=== PATIENT | female | born 1945 | race Caucasian/White ===

== ENCOUNTER 2018-02-20 20:04 | Emergency (ER) | payer OTHER ==
[~2018-02-20] VITALS: Ht 167.6 cm; Wt 59.0 kg
[2018-02-20] MEDS ORDERED: SODIUM CHLORIDE 0.9% 1,000 ML IVB ONE (21:50)
[2018-02-20 23:12] LABS: Basophils # (auto) 0 uL; Basophils % (auto) 0.4 % (0.0-2.0); Eosinophils # (auto) 0.1 uL; Eosinophils % (auto) 0.8 % (0.0-7.0); Hemoglobin 14.3 g/dL (12.2-16.2); Lymphocytes # (auto) 0.9 uL; Lymphocytes % (auto) 8.2 % (10.0-50.0); Mean Corpuscular Hemoglobin 31.1 pg (28.0-32.0); Mean Corpuscular Hgb Conc. 33.2 g/dL (32.0-36.0); Mean Corpuscular Volume 93.7 fL (80.0-100.0); Monocytes # (auto) 0.4 uL; Monocytes % (auto) 3.2 % (0.0-12.0); Neutrophils # (auto) 9.8 uL; Neutrophils % (auto) 87.4 % (37.0-80.0); Platelet Count (auto) 218 10^3/uL (140-450); Red Blood Cells 4.59 10^6/uL (4.0-5.20); Red Cell Distribution Width 13.6 % (11.8-14.3); White Blood Cell 11.2 10^3/uL (4.4-10.8)
[2018-02-20 23:34] LABS: Albumin 4.4 g/dL (3.4-5.0); BUN/Creatinine Ratio 13.4; Bilirubin, Total 0.4 mg/dL (0.2-1.0); Calcium 8.5 mg/dL (8.5-10.1); Potassium 3.5 mmol/L (3.5-5.1); Total Protein 8.4 g/dL (6.4-8.2)
[2018-02-21] MEDS ORDERED: EPINEPHrine HCL INJECTION 4 MG in SODIUM CHL 0.9% 250 ML IV ONE (05:00)
[2018-02-21] MEDS ORDERED: SODIUM CHLORIDE 0.9% 1,000 ML IV ONE (07:56)
[2018-02-21 12:00] VITALS: BP 161/99
[2018-02-21 12:07] LABS: Urine Bacteria FEW /hpf (None Seen); Urine Blood 1+ /uL (Negative); Urine Specific Gravity 1.011 (1.001-1.035); Urine WBC 11 /hpf (0 - 5)
[2018-02-21 12:39] LABS: Alcohol, Urine < 3.0 mg/dL (0-5); Amphetamine Screen, Urine POSITIVE (NEGATIVE); Barbiturate Scree,Urine NEGATIVE (NEGATIVE); Benzodiazephine Screen, Urine NEGATIVE (NEGATIVE); Cannabinoid Screen, Urine NEGATIVE (NEGATIVE); Cocaine Screen, Urine NEGATIVE (NEGATIVE); Opiate Scree,Urine NEGATIVE (NEGATIVE); Phencyclidine Screen, Urine NEGATIVE (NEGATIVE)
[2018-02-21] MEDS ORDERED: LEVOFLOXACIN 500 MG TAB PO ONE (12:45)
== END 2018-02-21 13:44 | disposition home or self-care (01) ==
LOC: EDBD 20:04 → ER 20:04
DX: R55 Syncope and collapse (principal); I11.0 Hypertensive heart disease with heart failure; I50.9 Heart failure, unspecified; I25.10 Atherosclerotic heart disease of native coronary artery without angina pectoris; N39.0 Urinary tract infection, site not specified; N28.9 Disorder of kidney and ureter, unspecified; F15.10 Other stimulant abuse, uncomplicated; Z95.810 Presence of automatic (implantable) cardiac defibrillator; Z88.0 Allergy status to penicillin
CPT/HCPCS: 36415; 71046; 80053; 80307; 81001; 83735; 84484; 85025; 93005; 96360; 96361; 99285; J7030; J0171

== ENCOUNTER 2018-04-09 07:13 | Inpatient (IN) | payer OTHER ==
[~2018-04-09] VITALS: Ht 162.6 cm; Wt 64.4 kg
[2018-04-09 09:15] LABS: Basophils # (auto) 0.1 uL; Basophils % (auto) 1.1 % (0.0-2.0); Eosinophils # (auto) 0.1 uL; Eosinophils % (auto) 1.1 % (0.0-7.0); Hematocrit 36.9 % (36.0-46.0); Hemoglobin 12.2 g/dL (12.2-16.2); Lymphocytes # (auto) 0.9 uL; Lymphocytes % (auto) 13.2 % (10.0-50.0); Mean Corpuscular Hemoglobin 31.5 pg (28.0-32.0); Mean Corpuscular Volume 95.5 fL (80.0-100.0); Monocytes # (auto) 0.8 uL; Monocytes % (auto) 12.6 % (0.0-12.0); Neutrophils # (auto) 4.7 uL; Nucleated Red Blood Cells % 0.1 %; Platelet Count (auto) 212 10^3/uL (140-450); Red Blood Cells 3.87 10^6/uL (4.0-5.20); Red Cell Distribution Width 16.5 % (11.8-14.3); White Blood Cell 6.6 10^3/uL (4.4-10.8)
[2018-04-09 09:20] LABS: INR 1.31 (0.9-1.15); Partial Thromboplastin Time 28.1 sec (23.78-33.04); Prothrombin Time 13.8 sec (9.27-12.13)
[2018-04-09 09:23] LABS: Albumin 3.2 g/dL (3.4-5.0); Calcium 8.6 mg/dL (8.5-10.1); Magnesium 1.9 mg/dL (1.6-2.6); Potassium 5.1 mmol/L (3.5-5.1)
[2018-04-09 09:26] LABS: BUN/Creatinine Ratio 16.1
[2018-04-09 09:32] LABS: Bilirubin, Total 1.4 mg/dL (0.2-1.0); Total Protein 6.6 g/dL (6.4-8.2)
[2018-04-09] MEDS ORDERED: FUROSEMIDE 40 MG/4 ML VIAL IV ONE ×2 (10:00→10:30)
[2018-04-09] MEDS ORDERED: LORazepam 0.5 MG TAB PO PRN (10:15)
[2018-04-09] MEDS ORDERED: ALBUTEROL SULF 2.5 MG/0.5ML(0.5%) NEB SOLN NEB PRN (10:15)
[2018-04-09] MEDS ORDERED: NITROGLYCERIN 0.4 MG SL TAB SL PRN (10:15)
[2018-04-09] MEDS ORDERED: MORPHINE SULFATE 8mg/ml INJ SDV IV PRN ×3 (10:15)
[2018-04-09] MEDS ORDERED: PROMETHAZINE HCL 25 MG/ML 1ML IV PRN (10:15)
[2018-04-09] MEDS ORDERED: TEMAZEPAM 15 MG CAP PO PRN (10:15)
[2018-04-09] MEDS ORDERED: ASPirin 81 mg TAB PO ONE (10:30)
[2018-04-09] MEDS ORDERED: ENALAPRIL MALEATE 2.5 MG TAB PO ONE (10:30)
[2018-04-09] MEDS ORDERED: NITROGLYCERIN 0.2MG/HR TOPICAL PATCH TD ONE (10:30)
[2018-04-09] MEDS ORDERED: ENOXAPARIN SOD 40 MG/0.4 ML SYRINGE SC ONE (10:30)
[2018-04-09] MEDS ORDERED: PANTOPRAZOLE 40 MG TAB PO ONE (10:30)
[2018-04-09 11:18] LABS: CRP High Sensitivity 1.64 mg/dL (< 0.3)
[2018-04-09] MEDS: ALBUTEROL SULF 2.5 MG/0.5ML(0.5%) NEB SOLN NEB SCH ×2 (12:50→18:12)
[2018-04-09 13:40] VITALS: BP 173/93
[2018-04-09] MEDS ORDERED: ASPI81TA27 PO (17:32)
[2018-04-09] MEDS ORDERED: METO-159 PO (17:32)
[2018-04-09] MEDS ORDERED: ATOR80TA PO (17:32)
[2018-04-09] MEDS ORDERED: LISI40TA PO (17:32)
[2018-04-09] MEDS ORDERED: HYDR25TA35 PO (17:32)
[2018-04-09] MEDS ORDERED: CLOP75TA41 PO (17:32)
[2018-04-09] MEDS: CARVEDILOL 3.125 MG TAB PO SCH (22:00)
[2018-04-10] MEDS: ALBUTEROL SULF 2.5 MG/0.5ML(0.5%) NEB SOLN NEB SCH ×4 (00:25→18:00)
[2018-04-10 06:57] LABS: Basophils # (auto) 0 uL; Basophils % (auto) 0.7 % (0.0-2.0); Eosinophils # (auto) 0.1 uL; Eosinophils % (auto) 2.6 % (0.0-7.0); Hemoglobin 11.3 g/dL (12.2-16.2); Lymphocytes # (auto) 0.5 uL; Lymphocytes % (auto) 10.6 % (10.0-50.0); Mean Corpuscular Hgb Conc. 34.1 g/dL (32.0-36.0); Mean Corpuscular Volume 93.8 fL (80.0-100.0); Monocytes # (auto) 0.5 uL; Monocytes % (auto) 9.5 % (0.0-12.0); Neutrophils # (auto) 3.8 uL; Neutrophils % (auto) 76.6 % (37.0-80.0); Platelet Count (auto) 157 10^3/uL (140-450); Red Blood Cells 3.52 10^6/uL (4.0-5.20); Red Cell Distribution Width 16.3 % (11.8-14.3); White Blood Cell 4.9 10^3/uL (4.4-10.8)
[2018-04-10 07:12] LABS: Albumin 2.9 g/dL (3.4-5.0); BUN/Creatinine Ratio 18.2; Bilirubin, Total 1.2 mg/dL (0.2-1.0); Calcium 8.4 mg/dL (8.5-10.1); Potassium 3.6 mmol/L (3.5-5.1)
[2018-04-10 09:00] VITALS: BP 145/72
[2018-04-10] MEDS: CARVEDILOL 3.125 MG TAB PO SCH (09:57)
[2018-04-10] MEDS ORDERED: ENALAPRIL MALEATE 2.5 MG TAB PO SCH (10:00)
[2018-04-10] MEDS ORDERED: ASPirin 81 mg TAB PO SCH (10:00)
[2018-04-10] MEDS ORDERED: NITROGLYCERIN 0.2MG/HR TOPICAL PATCH TD SCH (10:00)
[2018-04-10] MEDS ORDERED: FUROSEMIDE 40 MG/4 ML VIAL IV SCH ×2 (10:00→18:00)
[2018-04-10] MEDS ORDERED: PANTOPRAZOLE 40 MG TAB PO SCH (10:00)
[2018-04-10] MEDS ORDERED: POTASSIUM CHL 20 Meq TABLET PO SCH (10:00)
[2018-04-10] MEDS ORDERED: ENOXAPARIN SOD 40 MG/0.4 ML SYRINGE SC SCH (10:00)
[2018-04-10 11:54] VITALS: BP 146/70
[2018-04-10 16:08] VITALS: BP 151/53
[2018-04-10 16:15] VITALS: BP 151/53
[2018-04-10] MEDS ORDERED: CARVEDILOL 3.125 MG TAB PO SCH (22:00)
[2018-04-11] MEDS ORDERED: ENALAPRIL MALEATE 10 MG TAB PO SCH (10:00)
[2018-04-12 10:44] LABS: Hepatitis B Surface Antibody Negative
[2018-04-12 11:13] LABS: Hepatitis A Total Antibody Negative
[2018-04-12 13:12] LABS: Hepatitis B Core Total AB Negative; Hepatitis B Surface Antigen Negative (Negative); Hepatitis C Antibody Negative (Negative)
== END 2018-04-10 18:35 | disposition home or self-care (01) | DRG 291 ==
LOC: EDBD 07:13 → ER 07:13 → TELE 07:14 → DOU IN ICU 04-10 08:45
PROVIDERS: ADMIT Internal Medicine; ATTEND Family Medicine
DX: I11.0 Hypertensive heart disease with heart failure (principal); J96.01 Acute respiratory failure with hypoxia; E78.5 Hyperlipidemia, unspecified; I50.43 Acute on chronic combined systolic (congestive) and diastolic (congestive) heart failure; F41.9 Anxiety disorder, unspecified; G47.00 Insomnia, unspecified; I20.9 Angina pectoris, unspecified; I42.9 Cardiomyopathy, unspecified; I73.9 Peripheral vascular disease, unspecified; R79.89 Other specified abnormal findings of blood chemistry; J44.9 Chronic obstructive pulmonary disease, unspecified; K21.9 Gastro-esophageal reflux disease without esophagitis; Z95.810 Presence of automatic (implantable) cardiac defibrillator; Z88.0 Allergy status to penicillin; Z79.899 Other long term (current) drug therapy
CPT/HCPCS: 36415; 71045; 76705; 80053; 80061; 82150; 82550; 83690; 83735; 83880; 84443; 84484; 85025; 85610; 85652; 85730; 86141; 86704; 86706; 86708; 86803; 87081; 87340; 93005; 93306; 94640

== ENCOUNTER 2020-04-13 13:04 | Emergency (ER) | payer OTHER ==
[~2020-04-13] VITALS: Ht 160 cm; Wt 59.0 kg
[~2020-04-13 13:04] MED LIST: ASPI-404 PO; ATOR80TA PO; CLOP75TA41 PO; HYDR-4296 PO; LISI40TA PO; METO-159 PO
[2020-04-13 13:52] LABS: Basophils # (auto) 0 10 ^3/uL (0-0.2); Basophils % (auto) 0.7 % (0.0-2.0); Eosinophils # (auto) 0.2 10 ^3/uL (0-0.8); Eosinophils % (auto) 3.7 % (0.0-7.0); Hematocrit 40.5 % (36.0-46.0); Hemoglobin 13.6 g/dL (12.2-16.2); Lymphocytes # (auto) 0.8 10 ^3/uL (0.4-5.4); Lymphocytes % (auto) 14.8 % (10.0-50.0); Mean Corpuscular Hemoglobin 31.4 pg (28.0-32.0); Mean Corpuscular Hgb Conc. 33.6 g/dL (32.0-36.0); Mean Corpuscular Volume 93.6 fL (80.0-100.0); Monocytes # (auto) 0.5 10 ^3/uL (0-1.3); Neutrophils # (auto) 3.9 10 ^3/uL (1.6-8.6); Neutrophils % (auto) 71.8 % (37.0-80.0); Platelet Count (auto) 166 10^3/uL (140-450); Red Blood Cells 4.33 10^6/uL (4.0-5.20); Red Cell Distribution Width 13.8 % (11.8-14.3); White Blood Cell 5.4 10^3/uL (4.4-10.8)
[2020-04-13 14:21] LABS: Albumin 3.7 g/dL (3.4-5.0); Calcium 8.4 mg/dL (8.5-10.1); Potassium 3.6 mmol/L (3.5-5.1)
[2020-04-13 14:27] LABS: BUN/Creatinine Ratio 23.9; Bilirubin, Total 0.6 mg/dL (0.2-1.0); Total Protein 7.3 g/dL (6.4-8.2)
[2020-04-13 15:59] VITALS: BP 99/56
== END 2020-04-13 16:01 | disposition home or self-care (01) ==
LOC: EDBD 13:04 → ER 13:04
DX: J70.5 Respiratory conditions due to smoke inhalation (principal); R06.02 Shortness of breath; I11.0 Hypertensive heart disease with heart failure; I50.9 Heart failure, unspecified; Z95.0 Presence of cardiac pacemaker; Z87.891 Personal history of nicotine dependence
CPT/HCPCS: 36415; 36600; 71046; 80053; 82805; 83880; 84484; 85025; 93005; 99285; J7030

== ENCOUNTER 2021-03-21 06:37 | Inpatient (IN) | payer OTHER ==
[~2021-03-21] VITALS: Ht 160 cm; Wt 63.0 kg
[~2021-03-21 06:37] MED LIST changes: -ASPI-404 PO; +ASPI-543 PO; -CLOP75TA41 PO; +CLOP75TA70 PO; -LISI40TA PO; +LISI40TA11 PO
[2021-03-21] MEDS ORDERED: SODIUM CHLORIDE 0.9% 1,000 ML IV ONE (07:15)
[2021-03-21] MEDS ORDERED: IPRATROPIUM BROM 0.5 MG/2.5ML INH SOL NEB ONE (07:15)
[2021-03-21] MEDS ORDERED: ALBUTEROL SULF 2.5 MG/0.5ML(0.5%) NEB SOLN NEB ONE (07:15)
[2021-03-21 07:19] LABS: Basophils # (auto) 0 10 ^3/uL (0-0.2); Basophils % (auto) 0.4 % (0.0-2.0); Eosinophils # (auto) 0 10 ^3/uL (0-0.8); Eosinophils % (auto) 0.1 % (0.0-7.0); Hematocrit 27.3 % (36.0-46.0); Lymphocytes % (auto) 8.9 % (10.0-50.0); Mean Corpuscular Hemoglobin 31.4 pg (28.0-32.0); Mean Corpuscular Hgb Conc. 33.1 g/dL (32.0-36.0); Mean Corpuscular Volume 95.1 fL (80.0-100.0); Monocytes # (auto) 1.9 10 ^3/uL (0-1.3); Monocytes % (auto) 16.4 % (0.0-12.0); Neutrophils # (auto) 8.7 10 ^3/uL (1.6-8.6); Neutrophils % (auto) 74.2 % (37.0-80.0); Nucleated Red Blood Cells % 0.1 %; Red Blood Cells 2.88 10^6/uL (4.0-5.20); Red Cell Distribution Width 16.1 % (11.8-14.3); White Blood Cell 11.7 10^3/uL (4.4-10.8)
[2021-03-21 07:40] LABS: Albumin 3.3 g/dL (3.4-5.0); Calcium 8.4 mg/dL (8.5-10.1); Potassium 4.5 mmol/L (3.5-5.1)
[2021-03-21 07:46] LABS: Bilirubin, Total 1.9 mg/dL (0.2-1.0); Total Protein 6.8 g/dL (6.4-8.2)
[2021-03-21] MEDS ORDERED: HYDR-4298 PO (09:52)
[2021-03-21] MEDS ORDERED: ATOR-47 PO (09:52)
[2021-03-21] MEDS ORDERED: FURO40TA4 PO (09:52)
[2021-03-21] MEDS ORDERED: METO200T42 PO (09:52)
[2021-03-21 10:26] LABS: Urine Amorphous Crystal FEW /hpf (None Seen); Urine Bacteria FEW /hpf (None Seen); Urine Blood 2+ /uL (Negative); Urine Hyaline Cast FEW /lpf (0 - 2); Urine Specific Gravity 1.018 (1.001-1.035); Urine WBC 22 /hpf (0 - 5)
[2021-03-21 10:37] LABS: Amphetamine Screen, Urine POSITIVE (NEGATIVE); Barbiturate Scree,Urine NEGATIVE (NEGATIVE); Benzodiazephine Screen, Urine NEGATIVE (NEGATIVE); Cannabinoid Screen, Urine POSITIVE (NEGATIVE); Cocaine Screen, Urine NEGATIVE (NEGATIVE); Opiate Scree,Urine NEGATIVE (NEGATIVE); Phencyclidine Screen, Urine NEGATIVE (NEGATIVE)
[2021-03-21] MEDS ORDERED: ONDANSETRON HCL 4 MG/2 ML VIAL IV PRN (13:45)
[2021-03-21] MEDS ORDERED: NITROGLYCERIN 0.4 MG SL TAB SL PRN (13:45)
[2021-03-21] MEDS ORDERED: hydrALAZINE HCL 20 MG/ML VL IV PRN (13:45)
[2021-03-21] MEDS ORDERED: MORPHINE SULFATE INJECTION 2 MG/ML SYRG IV PRN ×2 (13:45)
[2021-03-21] MEDS: SODIUM CHLORIDE 0.9% 1,000 ML IV SCH (13:52)
[2021-03-21 13:57] VITALS: BP 113/68
[2021-03-21 17:46] VITALS: BP 109/74
[2021-03-21] MEDS: BUDESONIDE (INHALATION) 0.5 MG/2 ML NEB NEB SCH (20:10)
[2021-03-21] MEDS: IPRATROPIUM BROM 0.5 MG/2.5ML INH SOL NEB SCH (20:10)
[2021-03-21] MEDS: ALBUTEROL SULF 2.5 MG/0.5ML(0.5%) NEB SOLN NEB PRN (20:10)
[2021-03-21 22:00] VITALS: BP 107/59
[2021-03-21] MEDS: PANTOPRAZOLE 40 MG TAB PO SCH (22:01)
[2021-03-21] MEDS: LORazepam 2MG/ML-1ML VIAL IV PRN (22:02)
[2021-03-22] MEDS: IPRATROPIUM BROM 0.5 MG/2.5ML INH SOL NEB SCH ×4 (00:39→18:16)
[2021-03-22] MEDS: SODIUM CHLORIDE 0.9% 1,000 ML IV SCH (04:15)
[2021-03-22 05:00] VITALS: BP 100/52
[2021-03-22] MEDS: BUDESONIDE (INHALATION) 0.5 MG/2 ML NEB NEB SCH ×2 (06:12→18:16)
[2021-03-22 06:51] LABS: Basophils # (auto) 0.1 10 ^3/uL (0-0.2); Basophils % (auto) 0.9 % (0.0-2.0); Eosinophils # (auto) 0.1 10 ^3/uL (0-0.8); Eosinophils % (auto) 0.9 % (0.0-7.0); Hematocrit 26.9 % (36.0-46.0); Lymphocytes # (auto) 0.4 10 ^3/uL (0.4-5.4); Lymphocytes % (auto) 4.7 % (10.0-50.0); Mean Corpuscular Hemoglobin 31.4 pg (28.0-32.0); Mean Corpuscular Hgb Conc. 33.3 g/dL (32.0-36.0); Mean Corpuscular Volume 94.3 fL (80.0-100.0); Monocytes # (auto) 1.1 10 ^3/uL (0-1.3); Neutrophils # (auto) 6.7 10 ^3/uL (1.6-8.6); Neutrophils % (auto) 80.5 % (37.0-80.0); Nucleated Red Blood Cells % 0.1 %; Red Blood Cells 2.85 10^6/uL (4.0-5.20); Red Cell Distribution Width 16.4 % (11.8-14.3); White Blood Cell 8.3 10^3/uL (4.4-10.8)
[2021-03-22 07:12] LABS: Albumin 3.3 g/dL (3.4-5.0); BUN/Creatinine Ratio 22.5; Calcium 8.4 mg/dL (8.5-10.1); INR 1.64 (0.9-1.15); Potassium 3.9 mmol/L (3.5-5.1)
[2021-03-22 07:21] LABS: Bilirubin, Total 1.8 mg/dL (0.2-1.0); Total Protein 6.5 g/dL (6.4-8.2)
[2021-03-22 09:00] VITALS: BP 98/62
[2021-03-22] MEDS: levoFLOXacin 250MG 50 ML IV SCH (09:19)
[2021-03-22] MEDS: PANTOPRAZOLE 40 MG TAB PO SCH ×2 (09:20→21:14)
[2021-03-22] MEDS ORDERED: ENOXAPARIN SOD 40 MG/0.4 ML SYRINGE SC SCH (10:00)
[2021-03-22] MEDS ORDERED: PANTOPRAZOLE 40 MG/10 ML VIAL INJ IV SCH (10:00)
[2021-03-22 12:48] VITALS: BP 115/65
[2021-03-22 14:54] LABS: Hepatitis B Surface Antibody Negative
[2021-03-22 15:33] LABS: Hepatitis A Total Antibody Negative
[2021-03-22 16:26] LABS: Hepatitis B Surface Antigen Negative (Negative); Hepatitis C Antibody Negative (Negative)
[2021-03-22 16:27] LABS: Hepatitis B Core Total AB Negative
[2021-03-22 17:00] VITALS: BP 115/58
[2021-03-22] MEDS: LORazepam 2MG/ML-1ML VIAL IV PRN (21:21)
[2021-03-22 22:25] VITALS: BP 126/68
[2021-03-23] MEDS: IPRATROPIUM BROM 0.5 MG/2.5ML INH SOL NEB SCH ×4 (00:38→18:00)
[2021-03-23 05:27] VITALS: BP 116/59
[2021-03-23 05:47] LABS: Eosinophils # (auto) 0.1 10 ^3/uL (0-0.8); Hematocrit 24.3 % (36.0-46.0); Lymphocytes % (auto) 8.7 % (10.0-50.0); Monocytes # (auto) 0.9 10 ^3/uL (0-1.3); Neutrophils # (auto) 4.7 10 ^3/uL (1.6-8.6); Nucleated Red Blood Cells % 0.1 %
[2021-03-23 05:49] LABS: Basophils # (auto) 0 10 ^3/uL (0-0.2); Basophils % (auto) 0.7 % (0.0-2.0); Eosinophils % (auto) 1.7 % (0.0-7.0); Lymphocytes # (auto) 0.6 10 ^3/uL (0.4-5.4); Mean Corpuscular Hemoglobin 30.8 pg (28.0-32.0); Mean Corpuscular Hgb Conc. 32.9 g/dL (32.0-36.0); Mean Corpuscular Volume 93.8 fL (80.0-100.0); Monocytes % (auto) 14.5 % (0.0-12.0); Neutrophils % (auto) 74.4 % (37.0-80.0); Red Blood Cells 2.59 10^6/uL (4.0-5.20); Red Cell Distribution Width 16.1 % (11.8-14.3); White Blood Cell 6.4 10^3/uL (4.4-10.8)
[2021-03-23 05:55] LABS: Albumin 2.8 g/dL (3.4-5.0); Calcium 7.6 mg/dL (8.5-10.1); Potassium 3.9 mmol/L (3.5-5.1)
[2021-03-23 05:59] LABS: BUN/Creatinine Ratio 27.5; Total Protein 5.9 g/dL (6.4-8.2)
[2021-03-23] MEDS: BUDESONIDE (INHALATION) 0.5 MG/2 ML NEB NEB SCH ×2 (06:01→20:50)
[2021-03-23] MEDS: ALBUTEROL SULF 2.5 MG/0.5ML(0.5%) NEB SOLN NEB PRN (06:01)
[2021-03-23 08:15] VITALS: BP 130/70
[2021-03-23 09:00] VITALS: BP 130/70
[2021-03-23] MEDS: levoFLOXacin 250MG 50 ML IV SCH (10:12)
[2021-03-23] MEDS: PANTOPRAZOLE 40 MG TAB PO SCH (10:12)
[2021-03-23 13:00] VITALS: BP 122/77
[2021-03-23 15:47] VITALS: BP 122/77
[2021-03-23 17:00] VITALS: BP 144/69
[2021-03-23] MEDS ORDERED: FUROSEMIDE 20 MG/2 ML VIAL IV SCH (18:00)
[2021-03-23] MEDS ORDERED: LISI40TA11 PO (18:41)
[2021-03-23] MEDS ORDERED: FURO40TA4 PO (18:41)
[2021-03-23] MEDS ORDERED: POTASSIUM CHL 10 Meq TABLET PO SCH (22:00)
== END 2021-03-23 19:47 | disposition home or self-care (01) | DRG 291 ==
LOC: EDUNIT# 06:37 → ER 06:37 → EDBD 06:37 → TELE 13:33 → TELE-EAST 15:15
PROVIDERS: ADMIT Family Medicine; ATTEND Hospitalist
DX: I13.0 Hypertensive heart and chronic kidney disease with heart failure and stage 1 through stage 4 chronic kidney disease, or unspecified chronic kidney disease (principal); J96.01 Acute respiratory failure with hypoxia; K56.7 Ileus, unspecified; N18.4 Chronic kidney disease, stage 4 (severe); N39.0 Urinary tract infection, site not specified; E87.1 Hypo-osmolality and hyponatremia; I42.9 Cardiomyopathy, unspecified; R74.8 Abnormal levels of other serum enzymes; Z20.822 Contact with and (suspected) exposure to COVID-19; I50.9 Heart failure, unspecified; F12.90 Cannabis use, unspecified, uncomplicated; F32.9 Major depressive disorder, single episode, unspecified; F15.90 Other stimulant use, unspecified, uncomplicated; Z83.3 Family history of diabetes mellitus; Z87.891 Personal history of nicotine dependence; Z95.810 Presence of automatic (implantable) cardiac defibrillator; Z88.0 Allergy status to penicillin
CPT/HCPCS: 36415; 71045; 74176; 76705; 80053; 80307; 81001; 83880; 84443; 84484; 85025; 85610; 86704; 86706; 86708; 86803; 87086; 87340; 87426; 93005; 93306; 94640; 96361; 96374; 97110; 97116; 97530; 99291; G0378

== ENCOUNTER 2021-08-19 20:15 | Emergency (ER) | payer OTHER ==
[~2021-08-19] VITALS: Ht 170.2 cm; Wt 63.5 kg
[~2021-08-19 20:15] MED LIST changes: +ATOR-47 PO; -ATOR80TA PO; +FURO40TA4 PO; -HYDR-4296 PO; +HYDR-4298 PO; -METO-159 PO; +METO200T42 PO
[2021-08-20 00:12] VITALS: BP 159/67
[2021-08-20] MEDS ORDERED: IOHEXOL 350 MG/ML 100ML IJ ONE (07:22)
[2021-08-21] MEDS ORDERED: SPIR25TA8 PO (01:41)
[2021-08-21] MEDS ORDERED: GABA100C9 PO (01:41)
[2021-08-21] MEDS ORDERED: CHOL20007 PO (01:42)
== END 2021-08-20 01:42 | disposition home or self-care (01) ==
LOC: EDBD 20:15 → ER 20:17
DX: T82.838A Hemorrhage due to vascular prosthetic devices, implants and grafts, initial encounter (principal); I11.0 Hypertensive heart disease with heart failure; I50.9 Heart failure, unspecified; Z95.0 Presence of cardiac pacemaker; Z79.82 Long term (current) use of aspirin; Z79.01 Long term (current) use of anticoagulants; Z79.899 Other long term (current) drug therapy; Z88.0 Allergy status to penicillin
CPT/HCPCS: 93005

== ENCOUNTER 2021-08-20 04:58 | Inpatient (IN) | payer OTHER ==
[~2021-08-20] VITALS: Ht 162.6 cm; Wt 61.8 kg
[2021-08-20] MEDS ORDERED: SODIUM CHLORIDE 0.9% 500 ML IV ONE (06:45)
[2021-08-20] MEDS ORDERED: ONDANSETRON HCL 4 MG/2 ML VIAL IV ONE (06:45)
[2021-08-20 07:46] LABS: Basophils # (auto) 0.1 10 ^3/uL (0-0.2); Eosinophils # (auto) 0.2 10 ^3/uL (0-0.8); Eosinophils % (auto) 2.5 % (0.0-7.0); Lymphocytes # (auto) 0.5 10 ^3/uL (0.4-5.4); Mean Corpuscular Volume 95.4 fL (80.0-100.0); Monocytes # (auto) 0.6 10 ^3/uL (0-1.3); Neutrophils # (auto) 5.1 10 ^3/uL (1.6-8.6); White Blood Cell 6.4 10^3/uL (4.4-10.8)
[2021-08-20 07:47] LABS: Basophils % (auto) 0.8 % (0.0-2.0); Hematocrit 25.8 % (36.0-46.0); Hemoglobin 8.1 g/dL (12.2-16.2); Lymphocytes % (auto) 8.4 % (10.0-50.0); Mean Corpuscular Hemoglobin 29.7 pg (28.0-32.0); Mean Corpuscular Hgb Conc. 31.2 g/dL (32.0-36.0); Monocytes % (auto) 8.8 % (0.0-12.0); Neutrophils % (auto) 79.5 % (37.0-80.0); Nucleated Red Blood Cells % 0.1 %; Red Blood Cells 2.71 10^6/uL (4.0-5.20); Red Cell Distribution Width 24.7 % (11.8-14.3)
[2021-08-20 08:03] LABS: INR 2.24 (0.9-1.15); Partial Thromboplastin Time 33.3 sec (23.6-33.0)
[2021-08-20 08:04] LABS: Albumin 2.8 g/dL (3.4-5.0); Calcium 8.2 mg/dL (8.5-10.1); Potassium 4.4 mmol/L (3.5-5.1)
[2021-08-20] MEDS ORDERED: NITROGLYCERIN 0.4 MG SL TAB SL PRN (15:00)
[2021-08-20] MEDS ORDERED: MORPHINE SULFATE INJECTION 2 MG/ML SYRG IV PRN (15:00)
[2021-08-20 20:24] LABS: Hemoglobin 7.3 g/dL (12.2-16.2)
[2021-08-20 20:26] LABS: Hematocrit 23.4 % (36.0-46.0)
[2021-08-20] MEDS: ATORVASTATIN 20 MG TAB PO SCH (22:35)
[2021-08-20] MEDS: METOPROLOL TARTRATE 25 MG TAB PO SCH (22:35)
[2021-08-21 01:10] VITALS: BP 119/58
[2021-08-21] MEDS ORDERED: SPIR25TA8 PO (01:41)
[2021-08-21] MEDS ORDERED: GABA100C9 PO (01:41)
[2021-08-21] MEDS ORDERED: CHOL20007 PO (01:42)
[2021-08-21 05:00] VITALS: BP 104/42
[2021-08-21 05:55] LABS: Eosinophils # (auto) 0.2 10 ^3/uL (0-0.8); Lymphocytes # (auto) 0.5 10 ^3/uL (0.4-5.4); Red Blood Cells 2.36 10^6/uL (4.0-5.20)
[2021-08-21 05:57] LABS: Basophils # (auto) 0 10 ^3/uL (0-0.2); Basophils % (auto) 1.1 % (0.0-2.0); Eosinophils % (auto) 4.4 % (0.0-7.0); Hematocrit 22.4 % (36.0-46.0); Lymphocytes % (auto) 12.2 % (10.0-50.0); Mean Corpuscular Hemoglobin 29.6 pg (28.0-32.0); Mean Corpuscular Hgb Conc. 31.3 g/dL (32.0-36.0); Mean Corpuscular Volume 94.7 fL (80.0-100.0); Monocytes # (auto) 0.4 10 ^3/uL (0-1.3); Monocytes % (auto) 11.1 % (0.0-12.0); Neutrophils # (auto) 2.8 10 ^3/uL (1.6-8.6); Neutrophils % (auto) 71.2 % (37.0-80.0); Nucleated Red Blood Cells % 0.1 %
[2021-08-21 06:28] LABS: Red Cell Distribution Width 24.5 % (11.8-14.3)
[2021-08-21 09:00] VITALS: BP 125/49
[2021-08-21] MEDS: METOPROLOL TARTRATE 25 MG TAB PO SCH ×2 (11:00→21:52)
[2021-08-21] MEDS: PANTOPRAZOLE 40 MG TAB PO SCH (11:00)
[2021-08-21 11:49] LABS: Hematocrit 23.5 % (36.0-46.0); Hemoglobin 7.4 g/dL (12.2-16.2)
[2021-08-21 13:00] VITALS: BP 107/57
[2021-08-21 17:00] VITALS: BP 100/51
[2021-08-21] MEDS: ATORVASTATIN 20 MG TAB PO SCH (21:52)
[2021-08-21 22:00] VITALS: BP 113/56
[2021-08-22 05:00] VITALS: BP 101/59
[2021-08-22 08:36] VITALS: BP 123/61
[2021-08-22] MEDS: PANTOPRAZOLE 40 MG TAB PO SCH (09:46)
[2021-08-22] MEDS: METOPROLOL TARTRATE 25 MG TAB PO SCH (09:46)
[2021-08-22 12:43] VITALS: BP 107/59
== END 2021-08-22 14:41 | disposition short-term general hospital (02) | DRG 921 ==
LOC: EDBD 04:58 → ER 04:58 → TELE 14:55 → TELE-WESTW 08-21 00:04
PROVIDERS: ADMIT Nurse Practitioner Acute Care; ATTEND Internal Medicine
DX: L76.22 Postprocedural hemorrhage of skin and subcutaneous tissue following other procedure (principal); D64.9 Anemia, unspecified; I11.0 Hypertensive heart disease with heart failure; I48.91 Unspecified atrial fibrillation; Z20.822 Contact with and (suspected) exposure to COVID-19; Y83.8 Other surgical procedures as the cause of abnormal reaction of the patient, or of later complication, without mention of misadventure at the time of the procedure; E78.5 Hyperlipidemia, unspecified; I25.10 Atherosclerotic heart disease of native coronary artery without angina pectoris; I50.9 Heart failure, unspecified; I25.2 Old myocardial infarction; Z79.899 Other long term (current) drug therapy; Z80.7 Family history of other malignant neoplasms of lymphoid, hematopoietic and related tissues; Z83.3 Family history of diabetes mellitus; Z79.02 Long term (current) use of antithrombotics/antiplatelets; Z86.73 Personal history of transient ischemic attack (TIA), and cerebral infarction without residual deficits; Z95.5 Presence of coronary angioplasty implant and graft; Z88.0 Allergy status to penicillin; Y92.89 Other specified places as the place of occurrence of the external cause
CPT/HCPCS: 36415; 36430; 71045; 75635; 80053; 84484; 85014; 85018; 85025; 85610; 85730; 86850; 86900; 86901; 86920; 87426; 96360; 99291; G0378

== ENCOUNTER 2023-01-08 20:26 | Inpatient (IN) | payer OTHER ==
[~2023-01-08] VITALS: Ht 160 cm; Wt 66.3 kg
[~2023-01-08 20:26] MED LIST changes: -ATOR-47 PO; +CHOL20007 PO; -CLOP75TA70 PO; +GABA100C9 PO; -HYDR-4298 PO; -LISI40TA11 PO; +SPIR25TA8 PO
[2023-01-08] MEDS ORDERED: PANTOPRAZOLE 40mg/50ML NS AE 50 ML IV ONE (21:00)
[2023-01-08] MEDS ORDERED: PANTOPRAZOLE 80 MG in SODIUM CHL 0.9% 100 ML IV ONE (21:00)
[2023-01-08 21:53] LABS: Basophils # (auto) 0 10 ^3/uL (0-0.2); Basophils % (auto) 0.7 % (0.0-2.0); Eosinophils # (auto) 0.1 10 ^3/uL (0-0.8); Hematocrit 27.1 % (36.0-46.0); Lymphocytes # (auto) 0.6 10 ^3/uL (0.4-5.4); Lymphocytes % (auto) 9.3 % (10.0-50.0); Mean Corpuscular Hemoglobin 31.7 pg (28.0-32.0); Mean Corpuscular Hgb Conc. 33.4 g/dL (32.0-36.0); Monocytes # (auto) 0.6 10 ^3/uL (0-1.3); Monocytes % (auto) 9.7 % (0.0-12.0); Neutrophils # (auto) 4.9 10 ^3/uL (1.6-8.6); Neutrophils % (auto) 79.3 % (37.0-80.0); Nucleated Red Blood Cells % 0.2 %; Red Blood Cells 2.85 10^6/uL (4.0-5.20); Red Cell Distribution Width 19.5 % (11.8-14.3); White Blood Cell 6.2 10^3/uL (4.4-10.8)
[2023-01-08 22:16] LABS: Partial Thromboplastin Time 45.2 sec (24.6-33.4)
[2023-01-08 22:21] LABS: Albumin 3.1 g/dL (3.4-5.0); Calcium 8.8 mg/dL (8.5-10.1); Potassium 4.1 mmol/L (3.5-5.1)
[2023-01-08 22:23] LABS: BUN/Creatinine Ratio 47.8
[2023-01-08 22:26] LABS: INR 4.98 (0.9-1.15)
[2023-01-08 22:30] LABS: Bilirubin, Total 3.7 mg/dL (0.2-1.0); Total Protein 6.1 g/dL (6.4-8.2)
[2023-01-08] MEDS ORDERED: PHYTONADIONE (VIT K)10 MG/ML 1ML VIAL SUBCUT ONE (22:30)
[2023-01-08 23:04] LABS: Urine Bacteria FEW /hpf (None Seen); Urine Blood 1+ /uL (Negative); Urine Hyaline Cast FEW /lpf (0 - 2); Urine Specific Gravity 1.014 (1.001-1.035); Urine WBC 3 /hpf (0 - 5)
[2023-01-09] MEDS ORDERED: MELATONIN 5 MG TAB PO ONE (01:00)
[2023-01-09] MEDS ORDERED: cefTRIAXone 1GM/50ML D5W 50 ML IV ONE (02:45)
[2023-01-09] MEDS ORDERED: PANTOPRAZOLE 40mg/50ML NS AE 50 ML IV SCH (04:00)
[2023-01-09 04:48] VITALS: BP 77/47
[2023-01-09 04:50] VITALS: BP 85/50
[2023-01-09] MEDS ORDERED: ALBUMIN 25% 100 ML IV ONE (05:00)
[2023-01-09 05:05] VITALS: BP 93/52
[2023-01-09] MEDS ORDERED: PANTOPRAZOLE 40mg/50ML NS AE 50 ML IV ONE (05:45)
[2023-01-09] MEDS ORDERED: FUROSEMIDE 20 MG/2 ML VIAL IV ONE (05:45)
[2023-01-09 06:00] VITALS: BP 84/53
[2023-01-09] MEDS: NOREPINEPHRINE 8 MG/250ML KIT 250 ML IV SCH (07:37)
[2023-01-09 07:41] LABS: Basophils # (auto) 0.1 10 ^3/uL (0-0.2); Basophils % (auto) 0.9 % (0.0-2.0); Eosinophils # (auto) 0.1 10 ^3/uL (0-0.8); Eosinophils % (auto) 1.7 % (0.0-7.0); Hematocrit 26.2 % (36.0-46.0); Hemoglobin 8.9 g/dL (12.2-16.2); Lymphocytes # (auto) 0.7 10 ^3/uL (0.4-5.4); Mean Corpuscular Hemoglobin 32.2 pg (28.0-32.0); Mean Corpuscular Hgb Conc. 33.8 g/dL (32.0-36.0); Mean Corpuscular Volume 95.1 fL (80.0-100.0); Monocytes # (auto) 0.6 10 ^3/uL (0-1.3); Neutrophils # (auto) 4.3 10 ^3/uL (1.6-8.6); Neutrophils % (auto) 74.4 % (37.0-80.0); Nucleated Red Blood Cells % 0.1 %; Red Blood Cells 2.76 10^6/uL (4.0-5.20); Red Cell Distribution Width 18.7 % (11.8-14.3); White Blood Cell 5.7 10^3/uL (4.4-10.8)
[2023-01-09 07:49] LABS: INR 3.04 (0.9-1.15)
[2023-01-09] MEDS: ONDANSETRON HCL 4 MG/2 ML VIAL IV PRN (07:57)
[2023-01-09] MEDS: MORPHINE SULFATE INJ 2 MG/ml SYRG IV PRN (07:57)
[2023-01-09] MEDS ORDERED: levoFLOXacin 500MG 100 ML IV SCH (10:00)
[2023-01-09 12:15] LABS: Basophils # (auto) 0 10 ^3/uL (0-0.2); Basophils % (auto) 0.6 % (0.0-2.0); Eosinophils # (auto) 0.1 10 ^3/uL (0-0.8); Eosinophils % (auto) 1.7 % (0.0-7.0); Hematocrit 27.6 % (36.0-46.0); Lymphocytes # (auto) 0.5 10 ^3/uL (0.4-5.4); Lymphocytes % (auto) 8.4 % (10.0-50.0); Mean Corpuscular Hemoglobin 31.6 pg (28.0-32.0); Mean Corpuscular Hgb Conc. 32.7 g/dL (32.0-36.0); Mean Corpuscular Volume 96.7 fL (80.0-100.0); Monocytes # (auto) 0.6 10 ^3/uL (0-1.3); Monocytes % (auto) 9.4 % (0.0-12.0); Neutrophils # (auto) 5.1 10 ^3/uL (1.6-8.6); Neutrophils % (auto) 79.9 % (37.0-80.0); Nucleated Red Blood Cells % 0.1 %; Red Blood Cells 2.85 10^6/uL (4.0-5.20); Red Cell Distribution Width 19.2 % (11.8-14.3); White Blood Cell 6.4 10^3/uL (4.4-10.8)
[2023-01-09] MEDS ORDERED: PHYTONADIONE (VIT K)10 MG/ML 1ML VIAL IV ONE (12:15)
[2023-01-09 12:32] LABS: INR 3.04 (0.9-1.15)
[2023-01-09] MEDS: PANTOPRAZOLE 40mg/50ML NS AE 50 ML IV SCH ×3 (13:00→22:17)
[2023-01-09] MEDS: metroNIDAZOLE 500MG/100ML 100 ML IV SCH ×2 (15:04→22:17)
[2023-01-09 18:40] LABS: Basophils # (auto) 0.1 10 ^3/uL (0-0.2); Basophils % (auto) 1.1 % (0.0-2.0); Eosinophils # (auto) 0.1 10 ^3/uL (0-0.8); Eosinophils % (auto) 1.8 % (0.0-7.0); Hematocrit 28.6 % (36.0-46.0); Hemoglobin 9.4 g/dL (12.2-16.2); Lymphocytes # (auto) 0.5 10 ^3/uL (0.4-5.4); Lymphocytes % (auto) 7.8 % (10.0-50.0); Mean Corpuscular Hemoglobin 31.5 pg (28.0-32.0); Mean Corpuscular Hgb Conc. 32.8 g/dL (32.0-36.0); Monocytes # (auto) 0.6 10 ^3/uL (0-1.3); Monocytes % (auto) 9.7 % (0.0-12.0); Neutrophils # (auto) 4.8 10 ^3/uL (1.6-8.6); Neutrophils % (auto) 79.6 % (37.0-80.0); Nucleated Red Blood Cells % 0.1 %; Red Blood Cells 2.98 10^6/uL (4.0-5.20); Red Cell Distribution Width 19.8 % (11.8-14.3)
[2023-01-10 00:48] LABS: Basophils # (auto) 0.1 10 ^3/uL (0-0.2); Basophils % (auto) 0.9 % (0.0-2.0); Eosinophils # (auto) 0.1 10 ^3/uL (0-0.8); Eosinophils % (auto) 1.9 % (0.0-7.0); Hematocrit 30.5 % (36.0-46.0); Hemoglobin 9.7 g/dL (12.2-16.2); Lymphocytes # (auto) 0.9 10 ^3/uL (0.4-5.4); Lymphocytes % (auto) 11.8 % (10.0-50.0); Mean Corpuscular Hemoglobin 31.9 pg (28.0-32.0); Mean Corpuscular Volume 99.6 fL (80.0-100.0); Monocytes # (auto) 1.1 10 ^3/uL (0-1.3); Monocytes % (auto) 14.5 % (0.0-12.0); Neutrophils # (auto) 5.4 10 ^3/uL (1.6-8.6); Neutrophils % (auto) 70.9 % (37.0-80.0); Nucleated Red Blood Cells % 0.2 %; Red Blood Cells 3.06 10^6/uL (4.0-5.20); Red Cell Distribution Width 19.9 % (11.8-14.3); White Blood Cell 7.6 10^3/uL (4.4-10.8)
[2023-01-10] MEDS: NOREPINEPHRINE 8 MG/250ML KIT 250 ML IV SCH ×3 (01:24→22:36)
[2023-01-10] MEDS: PANTOPRAZOLE 40mg/50ML NS AE 50 ML IV SCH ×4 (02:52→19:31)
[2023-01-10] MEDS: MORPHINE SULFATE INJ 2 MG/ml SYRG IV PRN ×2 (03:47→22:35)
[2023-01-10 06:05] LABS: Basophils # (auto) 0.1 10 ^3/uL (0-0.2); Eosinophils # (auto) 0.1 10 ^3/uL (0-0.8); Eosinophils % (auto) 1.5 % (0.0-7.0); Hematocrit 29.3 % (36.0-46.0); Hemoglobin 9.8 g/dL (12.2-16.2); Lymphocytes # (auto) 0.6 10 ^3/uL (0.4-5.4); Lymphocytes % (auto) 8.6 % (10.0-50.0); Mean Corpuscular Hemoglobin 31.8 pg (28.0-32.0); Mean Corpuscular Hgb Conc. 33.3 g/dL (32.0-36.0); Mean Corpuscular Volume 95.5 fL (80.0-100.0); Monocytes % (auto) 14.1 % (0.0-12.0); Neutrophils % (auto) 74.8 % (37.0-80.0); Nucleated Red Blood Cells % 0.1 %; Red Blood Cells 3.07 10^6/uL (4.0-5.20); White Blood Cell 6.7 10^3/uL (4.4-10.8)
[2023-01-10] MEDS: metroNIDAZOLE 500MG/100ML 100 ML IV SCH ×3 (06:23→22:11)
[2023-01-10 06:28] LABS: Potassium 3.9 mmol/L (3.5-5.1)
[2023-01-10 06:35] LABS: BUN/Creatinine Ratio 38.2; Calcium 9.2 mg/dL (8.5-10.1)
[2023-01-10 07:30] LABS: Albumin 3.3 g/dL (3.4-5.0); Bilirubin, Direct 2.2 mg/dL (0-0.2)
[2023-01-10 07:33] LABS: Bilirubin, Total 3.4 mg/dL (0.2-1.0); Total Protein 6.4 g/dL (6.4-8.2)
[2023-01-10 08:24] LABS: INR 1.94 (0.9-1.15)
[2023-01-10] MEDS: levoFLOXacin 250MG 50 ML IV SCH (10:21)
[2023-01-10 12:57] LABS: Basophils # (auto) 0 10 ^3/uL (0-0.2); Basophils % (auto) 0.8 % (0.0-2.0); Eosinophils # (auto) 0 10 ^3/uL (0-0.8); Eosinophils % (auto) 0.8 % (0.0-7.0); Hematocrit 29.8 % (36.0-46.0); Hemoglobin 9.7 g/dL (12.2-16.2); Lymphocytes # (auto) 0.5 10 ^3/uL (0.4-5.4); Lymphocytes % (auto) 9.2 % (10.0-50.0); Mean Corpuscular Hemoglobin 31.4 pg (28.0-32.0); Mean Corpuscular Hgb Conc. 32.4 g/dL (32.0-36.0); Mean Corpuscular Volume 96.8 fL (80.0-100.0); Monocytes # (auto) 0.8 10 ^3/uL (0-1.3); Neutrophils # (auto) 3.9 10 ^3/uL (1.6-8.6); Neutrophils % (auto) 74.2 % (37.0-80.0); Nucleated Red Blood Cells % 0.2 %; Red Blood Cells 3.08 10^6/uL (4.0-5.20); Red Cell Distribution Width 19.7 % (11.8-14.3); White Blood Cell 5.3 10^3/uL (4.4-10.8)
[2023-01-10] MEDS ORDERED: LIDOCAINE 1% (LOCAL ANESTH.) PF 5ml SDV ID ONE (15:15)
[2023-01-10] MEDS ORDERED: MIDODRINE HCL 10 MG TAB PO ONE (18:45)
[2023-01-10] MEDS: SODIUM CHLOR 0.9% PF (SALINE LOCK) 10ML VIAL/SYR IV SCH (22:05)
[2023-01-11] VITALS (48 sets, daily range): BP systolic 87–124; BP diastolic 51–72
[2023-01-11] MEDS: PANTOPRAZOLE 40mg/50ML NS AE 50 ML IV SCH ×5 (00:28→19:30)
[2023-01-11] MEDS: metroNIDAZOLE 500MG/100ML 100 ML IV SCH ×3 (06:43→22:02)
[2023-01-11] MEDS: MIDODRINE HCL 10 MG TAB PO SCH ×3 (06:44→18:16)
[2023-01-11 08:10] LABS: Basophils # (auto) 0 10 ^3/uL (0-0.2); Basophils % (auto) 0.9 % (0.0-2.0); Eosinophils # (auto) 0.1 10 ^3/uL (0-0.8); Eosinophils % (auto) 1.9 % (0.0-7.0); Hematocrit 28.1 % (36.0-46.0); Hemoglobin 9.2 g/dL (12.2-16.2); Lymphocytes # (auto) 0.5 10 ^3/uL (0.4-5.4); Lymphocytes % (auto) 9.5 % (10.0-50.0); Mean Corpuscular Hemoglobin 31.9 pg (28.0-32.0); Mean Corpuscular Hgb Conc. 32.6 g/dL (32.0-36.0); Mean Corpuscular Volume 97.7 fL (80.0-100.0); Monocytes # (auto) 0.7 10 ^3/uL (0-1.3); Monocytes % (auto) 14.1 % (0.0-12.0); Neutrophils # (auto) 3.8 10 ^3/uL (1.6-8.6); Neutrophils % (auto) 73.6 % (37.0-80.0); Nucleated Red Blood Cells % 0.1 %; Red Blood Cells 2.88 10^6/uL (4.0-5.20); Red Cell Distribution Width 20.6 % (11.8-14.3); White Blood Cell 5.1 10^3/uL (4.4-10.8)
[2023-01-11 08:30] LABS: Calcium 8.8 mg/dL (8.5-10.1); Potassium 3.8 mmol/L (3.5-5.1)
[2023-01-11 08:32] LABS: BUN/Creatinine Ratio 25.9
[2023-01-11] MEDS: levoFLOXacin 250MG 50 ML IV SCH (09:27)
[2023-01-11] MEDS: SODIUM CHLOR 0.9% PF (SALINE LOCK) 10ML VIAL/SYR IV SCH ×2 (09:27→22:03)
[2023-01-11] MEDS: NOREPINEPHRINE 8 MG/250ML KIT 250 ML IV SCH (18:16)
[2023-01-12] VITALS (63 sets, daily range): BP systolic 77–125; BP diastolic 41–69
[2023-01-12] MEDS: PANTOPRAZOLE 40mg/50ML NS AE 50 ML IV SCH ×3 (00:31→11:13)
[2023-01-12 03:39] LABS: Calcium 8.8 mg/dL (8.5-10.1); Potassium 4.2 mmol/L (3.5-5.1)
[2023-01-12 03:40] LABS: BUN/Creatinine Ratio 17.5
[2023-01-12 04:50] LABS: Basophils # (auto) 0 10 ^3/uL (0-0.2); Basophils % (auto) 0.6 % (0.0-2.0); Eosinophils # (auto) 0.1 10 ^3/uL (0-0.8); Eosinophils % (auto) 2.1 % (0.0-7.0); Hematocrit 26.3 % (36.0-46.0); Hemoglobin 8.8 g/dL (12.2-16.2); Lymphocytes # (auto) 0.5 10 ^3/uL (0.4-5.4); Lymphocytes % (auto) 9.4 % (10.0-50.0); Mean Corpuscular Hemoglobin 32.5 pg (28.0-32.0); Mean Corpuscular Hgb Conc. 33.3 g/dL (32.0-36.0); Mean Corpuscular Volume 97.6 fL (80.0-100.0); Monocytes # (auto) 0.6 10 ^3/uL (0-1.3); Neutrophils # (auto) 3.7 10 ^3/uL (1.6-8.6); Neutrophils % (auto) 74.9 % (37.0-80.0); Nucleated Red Blood Cells % 0.3 %; White Blood Cell 4.9 10^3/uL (4.4-10.8)
[2023-01-12 05:01] LABS: Red Cell Distribution Width 20.5 % (11.8-14.3)
[2023-01-12] MEDS: metroNIDAZOLE 500MG/100ML 100 ML IV SCH ×3 (05:57→21:21)
[2023-01-12] MEDS: MIDODRINE HCL 10 MG TAB PO SCH ×3 (05:57→17:49)
[2023-01-12] MEDS: levoFLOXacin 250MG 50 ML IV SCH (09:38)
[2023-01-12] MEDS: SODIUM CHLOR 0.9% PF (SALINE LOCK) 10ML VIAL/SYR IV SCH ×2 (10:00→21:43)
[2023-01-12] MEDS ORDERED: NALOXONE HCL 0.4 MG/ML VIAL ONE (13:03)
[2023-01-12] MEDS ORDERED: LIDOCAINE VISCOUS 2% 15ML UD ONE (13:03)
[2023-01-12] MEDS ORDERED: FLUMAZENIL 0.1 MG/ML INJ 10ML MDV IV ONE (13:03)
[2023-01-12] MEDS ORDERED: diphenhdrAMINE HCL 50 MG/1 ML VL ONE (13:04)
[2023-01-12] MEDS ORDERED: fentaNYL CITRATE 100 MCG/2 ML VL ONE (13:04)
[2023-01-12] MEDS: MIDAZOLAM HCL 2MG/2ML 2ml VIAL (1mg/ml) ONE ×2 (14:35→14:38)
[2023-01-12] MEDS: SUCRALFATE 1 GM/10 ML ORAL SUSP PO SCH (17:49)
[2023-01-12] MEDS: PANTOPRAZOLE 40 MG/10 ML VIAL INJ IV SCH (21:20)
[2023-01-12] MEDS: GABAPENTIN 300 MG CAP PO SCH (21:20)
[2023-01-12] MEDS: MORPHINE SULFATE INJ 2 MG/ml SYRG IV PRN (21:22)
[2023-01-13] VITALS (66 sets, daily range): BP systolic 73–135; BP diastolic 42–73
[2023-01-13] MEDS: MORPHINE SULFATE INJ 2 MG/ml SYRG IV PRN (03:51)
[2023-01-13] MEDS: NOREPINEPHRINE 8 MG/250ML KIT 250 ML IV SCH (05:45)
[2023-01-13] MEDS: metroNIDAZOLE 500MG/100ML 100 ML IV SCH ×3 (06:14→22:40)
[2023-01-13] MEDS: GABAPENTIN 300 MG CAP PO SCH ×3 (06:15→22:39)
[2023-01-13] MEDS: MIDODRINE HCL 10 MG TAB PO SCH ×3 (06:15→18:35)
[2023-01-13] MEDS: SUCRALFATE 1 GM/10 ML ORAL SUSP PO SCH ×2 (07:18→17:00)
[2023-01-13] MEDS: cefTRIAXone 1GM/50ML D5W 50 ML IV SCH (09:41)
[2023-01-13] MEDS: PANTOPRAZOLE 40 MG/10 ML VIAL INJ IV SCH ×2 (09:41→22:40)
[2023-01-13] MEDS: SODIUM CHLOR 0.9% PF (SALINE LOCK) 10ML VIAL/SYR IV SCH ×2 (09:42→22:48)
[2023-01-13 10:30] LABS: Basophils # (auto) 0 10 ^3/uL (0-0.2); Eosinophils # (auto) 0.1 10 ^3/uL (0-0.8); Eosinophils % (auto) 1.9 % (0.0-7.0); Hematocrit 27.4 % (36.0-46.0); Hemoglobin 8.9 g/dL (12.2-16.2); Lymphocytes # (auto) 0.6 10 ^3/uL (0.4-5.4); Lymphocytes % (auto) 12.1 % (10.0-50.0); Mean Corpuscular Hemoglobin 32.1 pg (28.0-32.0); Mean Corpuscular Hgb Conc. 32.5 g/dL (32.0-36.0); Mean Corpuscular Volume 99.1 fL (80.0-100.0); Monocytes # (auto) 0.7 10 ^3/uL (0-1.3); Monocytes % (auto) 14.2 % (0.0-12.0); Neutrophils # (auto) 3.4 10 ^3/uL (1.6-8.6); Neutrophils % (auto) 70.8 % (37.0-80.0); Nucleated Red Blood Cells % 0.2 %; Red Blood Cells 2.77 10^6/uL (4.0-5.20); White Blood Cell 4.8 10^3/uL (4.4-10.8)
[2023-01-13 11:25] LABS: Albumin 2.8 g/dL (3.4-5.0); BUN/Creatinine Ratio 15.1; Bilirubin, Total 1.9 mg/dL (0.2-1.0); Potassium 4.4 mmol/L (3.5-5.1); Total Protein 5.6 g/dL (6.4-8.2)
[2023-01-13] MEDS: ONDANSETRON HCL 4 MG/2 ML VIAL IV PRN (16:31)
[2023-01-14 03:52] VITALS: BP 130/68
[2023-01-14] MEDS: MORPHINE SULFATE INJ 2 MG/ml SYRG IV PRN (04:50)
[2023-01-14] MEDS: GABAPENTIN 300 MG CAP PO SCH ×3 (05:26→21:58)
[2023-01-14] MEDS: metroNIDAZOLE 500MG/100ML 100 ML IV SCH (05:28)
[2023-01-14] MEDS: MIDODRINE HCL 10 MG TAB PO SCH ×3 (05:36→17:12)
[2023-01-14] MEDS: SUCRALFATE 1 GM/10 ML ORAL SUSP PO SCH ×2 (06:02→17:12)
[2023-01-14 08:38] VITALS: BP 95/66
[2023-01-14] MEDS: PANTOPRAZOLE 40 MG/10 ML VIAL INJ IV SCH (10:05)
[2023-01-14] MEDS: cefTRIAXone 1GM/50ML D5W 50 ML IV SCH (10:05)
[2023-01-14] MEDS: SODIUM CHLOR 0.9% PF (SALINE LOCK) 10ML VIAL/SYR IV SCH ×2 (10:05→22:01)
[2023-01-14 12:36] VITALS: BP 93/65
[2023-01-14 16:21] VITALS: BP 103/68
[2023-01-14 20:00] VITALS: BP 111/59
[2023-01-14] MEDS: PANTOPRAZOLE 40 MG TAB PO SCH (21:58)
[2023-01-14 22:00] VITALS: BP 111/59
[2023-01-15 05:00] VITALS: BP 97/61
[2023-01-15] MEDS: SUCRALFATE 1 GM/10 ML ORAL SUSP PO SCH ×2 (06:29→16:27)
[2023-01-15] MEDS: MIDODRINE HCL 10 MG TAB PO SCH ×3 (06:29→16:27)
[2023-01-15] MEDS: GABAPENTIN 300 MG CAP PO SCH ×2 (06:29→16:27)
[2023-01-15 07:52] VITALS: BP 105/61
[2023-01-15] MEDS: SODIUM CHLOR 0.9% PF (SALINE LOCK) 10ML VIAL/SYR IV SCH (08:08)
[2023-01-15] MEDS: PANTOPRAZOLE 40 MG TAB PO SCH (08:08)
[2023-01-15 13:00] VITALS: BP 89/58
[2023-01-15] MEDS ORDERED: MID10T PO (14:59)
[2023-01-15] MEDS ORDERED: PANT40T PO (14:59)
[2023-01-15] MEDS ORDERED: SUCR1SUS10 PO (14:59)
[2023-01-15 15:33] VITALS: BP 92/56
[2023-01-15 16:38] VITALS: BP 100/61
== END 2023-01-15 17:43 | disposition home health service (06) | DRG 381 ==
LOC: EDSEX 20:26 → ER 20:26 → EDBD 20:26 → TELE 01-09 07:53 → ICU WEST 01-11 07:56 → TELE-WESTW 01-13 21:09
PROVIDERS: ADMIT Nurse Practitioner Family; ATTEND Hospitalist
PROC: 30233K1 Transfusion of Nonautologous Frozen Plasma into Peripheral Vein, Percutaneous Approach (ICD-10-PCS; principal; 2023-01-09)
PROC: 30233N1 Transfusion of Nonautologous Red Blood Cells into Peripheral Vein, Percutaneous Approach (ICD-10-PCS; 2023-01-09)
PROC: 0DB98ZX Excision of Duodenum, Via Natural or Artificial Opening Endoscopic, Diagnostic (ICD-10-PCS; 2023-01-12)
PROC: 0DB68ZX Excision of Stomach, Via Natural or Artificial Opening Endoscopic, Diagnostic (ICD-10-PCS; 2023-01-12)
PROC: 0DB58ZX Excision of Esophagus, Via Natural or Artificial Opening Endoscopic, Diagnostic (ICD-10-PCS; 2023-01-12)
DX: K22.11 Ulcer of esophagus with bleeding (principal); D62 Acute posthemorrhagic anemia; D68.9 Coagulation defect, unspecified; K25.4 Chronic or unspecified gastric ulcer with hemorrhage; Z20.822 Contact with and (suspected) exposure to COVID-19; I50.9 Heart failure, unspecified; I11.0 Hypertensive heart disease with heart failure; T45.515A Adverse effect of anticoagulants, initial encounter; I95.9 Hypotension, unspecified; K44.9 Diaphragmatic hernia without obstruction or gangrene; Z95.0 Presence of cardiac pacemaker; Z83.3 Family history of diabetes mellitus; Z80.7 Family history of other malignant neoplasms of lymphoid, hematopoietic and related tissues; Z88.0 Allergy status to penicillin; Y92.89 Other specified places as the place of occurrence of the external cause; K29.91 Gastroduodenitis, unspecified, with bleeding
CPT/HCPCS: 36415; 36430; 36569; 43239; 71045; 80048; 80053; 80076; 81001; 82270; 82962; 83690; 85025; 85384; 85610; 85730; 86850; 86900; 86901; 86920; 87040; 87081; 87426; 93005; 93306; 96361; 96365; 96367; 96368; 96372; 96375; 97116; 97163; 97530; 99291; C9113; G0378; J0696; J1956; J2250; J2405; J3430; J3490; P9047

== ENCOUNTER 2023-01-17 00:41 | Inpatient (IN) | payer OTHER ==
[~2023-01-17] VITALS: Ht 170.2 cm; Wt 69.8 kg
[2023-01-17] VITALS (65 sets, daily range): BP systolic 63–122; BP diastolic 48–87
[~2023-01-17 00:41] MED LIST changes: -ASPI-543 PO; -FURO40TA4 PO; -METO200T42 PO; +MID10T PO; +PANT40T PO; -SPIR25TA8 PO; +SUCR1SUS10 PO
[2023-01-17 01:05] LABS: Basophils # (auto) 0.1 10 ^3/uL (0-0.2); Eosinophils # (auto) 0.1 10 ^3/uL (0-0.8); Eosinophils % (auto) 1.3 % (0.0-7.0); Hematocrit 30.4 % (36.0-46.0); Hemoglobin 9.7 g/dL (12.2-16.2); Lymphocytes # (auto) 1.4 10 ^3/uL (0.4-5.4); Lymphocytes % (auto) 20.8 % (10.0-50.0); Mean Corpuscular Hemoglobin 31.8 pg (28.0-32.0); Mean Corpuscular Hgb Conc. 31.8 g/dL (32.0-36.0); Mean Corpuscular Volume 99.8 fL (80.0-100.0); Monocytes # (auto) 0.6 10 ^3/uL (0-1.3); Monocytes % (auto) 8.3 % (0.0-12.0); Neutrophils # (auto) 4.8 10 ^3/uL (1.6-8.6); Neutrophils % (auto) 68.6 % (37.0-80.0); Nucleated Red Blood Cells % 0.4 %; Red Blood Cells 3.05 10^6/uL (4.0-5.20); White Blood Cell 6.9 10^3/uL (4.4-10.8)
[2023-01-17 01:14] LABS: Red Cell Distribution Width 20.9 % (11.8-14.3)
[2023-01-17 01:28] LABS: INR 1.42 (0.9-1.15); Partial Thromboplastin Time 29.5 sec (24.6-33.4)
[2023-01-17 01:43] LABS: Albumin 3.4 g/dL (3.4-5.0); BUN/Creatinine Ratio 12.3; Calcium 8.9 mg/dL (8.5-10.1); Potassium 4.4 mmol/L (3.5-5.1)
[2023-01-17 01:45] LABS: Bilirubin, Total 1.8 mg/dL (0.2-1.0); Total Protein 6.3 g/dL (6.4-8.2)
[2023-01-17] MEDS ORDERED: FUROSEMIDE 100 MG/10ML VIAL IV ONE (02:00)
[2023-01-17] MEDS ORDERED: DOPamine 1600MCG/ML D5W 250 ML IV SCH (02:15)
[2023-01-17] MEDS: DOBUTamine 1000MCG/ML 250 ML IV SCH ×5 (02:34→13:04)
[2023-01-17] MEDS: DOPamine 1600MCG/ML D5W 250 ML IV SCH ×5 (04:00→21:11)
[2023-01-17 04:24] LABS: Urine Bacteria FEW /hpf (None Seen); Urine Blood Negative /uL (Negative); Urine Hyaline Cast MANY /lpf (0 - 2); Urine Mucus FEW (None Seen); Urine Specific Gravity 1.013 (1.001-1.035); Urine WBC 4 /hpf (0 - 5)
[2023-01-17] MEDS: NOREPINEPHRINE 8 MG/250ML KIT 250 ML IV SCH ×2 (04:41→10:27)
[2023-01-17] MEDS ORDERED: ETOMIDATE (2MG/ML) 20ML VIAL IV ONE (04:45)
[2023-01-17] MEDS ORDERED: ROCURONIUM 10MG/ML 10ML VIAL IV ONE (04:45)
[2023-01-17] MEDS ORDERED: MIDAZOLAM DRIP 50 mg/50mL 50 ML IV ONE (04:48)
[2023-01-17] MEDS ORDERED: fentaNYL Drip 2500mCg/250mlNS 250 ML IV ONE (04:50)
[2023-01-17] MEDS: MIDAZOLAM DRIP 50 mg/50mL 50 ML IV SCH ×3 (04:57→21:12)
[2023-01-17] MEDS: fentaNYL Drip 2500mCg/250mlNS 250 ML IV SCH (04:58)
[2023-01-17] MEDS ORDERED: MORPHINE SULFATE INJ 2 MG/ml SYRG IV PRN (07:00)
[2023-01-17] MEDS ORDERED: DEXTROSE (50%) 50ML SYRG IV PRN (07:00)
[2023-01-17] MEDS ORDERED: ONDANSETRON HCL 4 MG/2 ML VIAL IV PRN (07:00)
[2023-01-17] MEDS ORDERED: NITROGLYCERIN 0.4 MG SL TAB SL PRN (07:00)
[2023-01-17] MEDS: VASOPRESSIN 20 UNITS in SODIUM CHL 0.9% 99 ML IV SCH ×2 (07:43→17:31)
[2023-01-17] MEDS: PANTOPRAZOLE 40 MG/10 ML VIAL INJ IV SCH (10:33)
[2023-01-17] MEDS: ENOXAPARIN SOD 30 MG/0.3 ML SYRINGE SC SCH (10:34)
[2023-01-17] MEDS: FUROSEMIDE 40 MG/4 ML VIAL IV SCH ×2 (10:34→21:14)
[2023-01-17] MEDS: EPINEPHrine HCL INJECTION 16 MG in D5W 5% 234 ML IV SCH (12:45)
[2023-01-17] MEDS: PHENYLEPHRINE INJ 80 MG in SODIUM CHL 0.9% 242 ML IV SCH (13:00)
[2023-01-17] MEDS: ACCU-CHEK COMFORT CURVE STRIP VI SCH ×3 (14:51→23:59)
[2023-01-17] MEDS: InsuLIN REG 1unit/0.01ml Soln (100units/ml) SC SCH ×3 (14:53→23:59)
[2023-01-17] MEDS: NOREPINEPHRINE BITARTRATE 32 MG in SODIUM CHL 0.9% 218 ML IV SCH (14:54)
[2023-01-17] MEDS ORDERED: WARF4TAB33 PO (19:20)
[2023-01-17] MEDS ORDERED: SUCR1SUS10 (19:20)
[2023-01-17] MEDS ORDERED: ATOR-47 PO (19:20)
[2023-01-17] MEDS ORDERED: METO1TAB9 PO (19:20)
[2023-01-17] MEDS ORDERED: GABA300C10 PO (19:20)
[2023-01-17] MEDS ORDERED: CEPH500C PO (19:20)
[2023-01-17] MEDS ORDERED: ACETAMINOPHEN 650 MG RECT SUPP PR PRN (21:30)
[2023-01-17 23:34] LABS: Basophils # (auto) 0.1 10 ^3/uL (0-0.2); Basophils % (auto) 0.6 % (0.0-2.0); Eosinophils # (auto) 0.1 10 ^3/uL (0-0.8); Eosinophils % (auto) 0.5 % (0.0-7.0); Hemoglobin 10.3 g/dL (12.2-16.2); Lymphocytes # (auto) 0.9 10 ^3/uL (0.4-5.4); Mean Corpuscular Hemoglobin 30.6 pg (28.0-32.0); Mean Corpuscular Hgb Conc. 31.2 g/dL (32.0-36.0); Mean Corpuscular Volume 98.1 fL (80.0-100.0); Monocytes # (auto) 1.1 10 ^3/uL (0-1.3); Monocytes % (auto) 8.9 % (0.0-12.0); Neutrophils # (auto) 10.5 10 ^3/uL (1.6-8.6); Nucleated Red Blood Cells % 0.5 %; Red Blood Cells 3.36 10^6/uL (4.0-5.20); Red Cell Distribution Width 19.9 % (11.8-14.3); White Blood Cell 12.6 10^3/uL (4.4-10.8)
[2023-01-17 23:47] LABS: BUN/Creatinine Ratio 13.5; Calcium 8.4 mg/dL (8.5-10.1)
[2023-01-18] VITALS (106 sets, daily range): BP systolic 68–115; BP diastolic 43–72
[2023-01-18] MEDS: IPRATROPIUM BROM 0.5 MG/2.5ML INH SOL NEB PRN (00:07)
[2023-01-18] MEDS: ALBUTEROL SULF 2.5 MG/0.5ML(0.5%) NEB SOLN NEB PRN (00:07)
[2023-01-18] MEDS: MIDAZOLAM DRIP 50 mg/50mL 50 ML IV SCH ×3 (04:22→16:06)
[2023-01-18] MEDS: DOPamine 1600MCG/ML D5W 250 ML IV SCH (04:23)
[2023-01-18] MEDS: fentaNYL Drip 2500mCg/250mlNS 250 ML IV SCH (05:15)
[2023-01-18] MEDS: VASOPRESSIN 20 UNITS in SODIUM CHL 0.9% 99 ML IV SCH ×2 (05:21→16:06)
[2023-01-18] MEDS: InsuLIN REG 1unit/0.01ml Soln (100units/ml) SC SCH ×4 (06:00→22:44)
[2023-01-18] MEDS: ACCU-CHEK COMFORT CURVE STRIP VI SCH ×4 (06:40→22:37)
[2023-01-18] MEDS ORDERED: NOREPINEPHRINE 8 MG/250ML KIT 250 ML IV ONE (07:10)
[2023-01-18] MEDS ORDERED: NOREPINEPHRINE BITARTRATE 6 ML IV ONE (07:11)
[2023-01-18 07:13] LABS: Basophils # (auto) 0.1 10 ^3/uL (0-0.2); Basophils % (auto) 0.9 % (0.0-2.0); Eosinophils # (auto) 0 10 ^3/uL (0-0.8); Eosinophils % (auto) 0.2 % (0.0-7.0); Hematocrit 32.1 % (36.0-46.0); Hemoglobin 10.2 g/dL (12.2-16.2); Lymphocytes # (auto) 0.5 10 ^3/uL (0.4-5.4); Lymphocytes % (auto) 3.4 % (10.0-50.0); Mean Corpuscular Hemoglobin 31.2 pg (28.0-32.0); Mean Corpuscular Hgb Conc. 31.7 g/dL (32.0-36.0); Mean Corpuscular Volume 98.5 fL (80.0-100.0); Monocytes # (auto) 0.9 10 ^3/uL (0-1.3); Monocytes % (auto) 6.2 % (0.0-12.0); Neutrophils % (auto) 89.3 % (37.0-80.0); Nucleated Red Blood Cells % 0.7 %; Red Blood Cells 3.26 10^6/uL (4.0-5.20); White Blood Cell 14.5 10^3/uL (4.4-10.8)
[2023-01-18] MEDS: NOREPINEPHRINE BITARTRATE 32 MG in SODIUM CHL 0.9% 218 ML IV SCH (07:21)
[2023-01-18 07:38] LABS: BUN/Creatinine Ratio 13.2; Calcium 8.5 mg/dL (8.5-10.1); Potassium 4.4 mmol/L (3.5-5.1)
[2023-01-18 07:40] LABS: Red Cell Distribution Width 20.7 % (11.8-14.3)
[2023-01-18] MEDS: PANTOPRAZOLE 40 MG/10 ML VIAL INJ IV SCH (09:15)
[2023-01-18] MEDS: FUROSEMIDE 40 MG/4 ML VIAL IV SCH ×2 (09:16→22:00)
[2023-01-18] MEDS: ENOXAPARIN SOD 30 MG/0.3 ML SYRINGE SC SCH (09:16)
[2023-01-18] MEDS: PHENYLEPHRINE INJ 80 MG in SODIUM CHL 0.9% 242 ML IV SCH ×2 (12:45→20:14)
[2023-01-18] MEDS: EPINEPHrine HCL INJECTION 16 MG in D5W 5% 234 ML IV SCH ×2 (12:45→20:16)
[2023-01-18] MEDS: DOBUTamine 1000MCG/ML 250 ML IV SCH (16:45)
[2023-01-18] MEDS ORDERED: DEXTROSE 10% 250 ML IV ONE ×2 (17:31→20:54)
[2023-01-18] MEDS ORDERED: DEXTROSE 10% 1,000 ML IV SCH (21:15)
[2023-01-18] MEDS ORDERED: SODIUM BICARBONATE 8.4 % INJ 50ML VIAL IV ONE (21:32)
[2023-01-18] MEDS: SODIUM BICARBONATE 50ML VIAL 150 ML in D5W 5% 1,000 ML IV SCH (22:06)
[2023-01-18] MEDS: HYDROCORTISONE SOD SUCC 100 MG/2ML INJ VIAL IV SCH (22:37)
[2023-01-18] MEDS: DEXTROSE 10% 1,000 ML IV SCH (23:19)
[2023-01-19] VITALS (101 sets, daily range): BP systolic 35–114; BP diastolic 19–68
[2023-01-19] MEDS ORDERED: PHENYLEPHRINE IV 250 ML IV ONE (01:45)
[2023-01-19] MEDS ORDERED: PHENYLEPHRINE HCL 10 MG/ML VL ONE (01:46)
[2023-01-19] MEDS: DOPamine 1600MCG/ML D5W 250 ML IV SCH ×3 (02:02→21:00)
[2023-01-19] MEDS: VASOPRESSIN 20 UNITS in SODIUM CHL 0.9% 99 ML IV SCH ×2 (03:28→18:22)
[2023-01-19] MEDS: PHENYLEPHRINE INJ 80 MG in SODIUM CHL 0.9% 242 ML IV SCH ×2 (03:40→16:03)
[2023-01-19 04:44] LABS: Hematocrit 33.1 % (36.0-46.0); Hemoglobin 9.6 g/dL (12.2-16.2); Mean Corpuscular Hemoglobin 30.9 pg (28.0-32.0); Mean Corpuscular Hgb Conc. 28.9 g/dL (32.0-36.0); Mean Corpuscular Volume 106.8 fL (80.0-100.0)
[2023-01-19] MEDS ORDERED: SODIUM BICARBONATE 8.4 % INJ 50ML VIAL IV ONE ×2 (04:45→10:30)
[2023-01-19 05:04] LABS: BUN/Creatinine Ratio 11.5; Calcium 7.4 mg/dL (8.5-10.1); Potassium 4.7 mmol/L (3.5-5.1)
[2023-01-19] MEDS: fentaNYL Drip 2500mCg/250mlNS 250 ML IV SCH (05:15)
[2023-01-19 05:27] LABS: Red Cell Distribution Width 20.3 % (11.8-14.3); White Blood Cell 31.4 10^3/uL (4.4-10.8)
[2023-01-19 05:29] LABS: Basophils % (manual) 0 (0.0-2.0); Blast Cells 0; Eosinophils % (manual) 0 (0-7); Lymphocytes % (manual) 0 (10.0-50.0); Promyelocytes % 0; Reactive Lymphocytes 0
[2023-01-19] MEDS: DOBUTamine 1000MCG/ML 250 ML IV SCH ×2 (05:47→18:34)
[2023-01-19] MEDS: ACCU-CHEK COMFORT CURVE STRIP VI SCH ×4 (06:04→23:57)
[2023-01-19] MEDS: HYDROCORTISONE SOD SUCC 100 MG/2ML INJ VIAL IV SCH ×2 (06:04→15:07)
[2023-01-19] MEDS: InsuLIN REG 1unit/0.01ml Soln (100units/ml) SC SCH ×4 (06:06→23:58)
[2023-01-19 09:41] LABS: Band Neutrophils % (manual) 46; Metamyelocytes % 6; Monocytes % (manual) 4 (0-12); Myelocytes % 1
[2023-01-19] MEDS ORDERED: VANCOMYCIN PER PHARMACY 0 MG IV SCH (10:00)
[2023-01-19] MEDS: FUROSEMIDE 40 MG/4 ML VIAL IV SCH ×2 (10:00→21:41)
[2023-01-19] MEDS ORDERED: VANCOMYCIN 1GM/250ML 250 ML IV ONE ×2 (10:00→12:30)
[2023-01-19] MEDS: ENOXAPARIN SOD 30 MG/0.3 ML SYRINGE SC SCH (10:37)
[2023-01-19] MEDS: PANTOPRAZOLE 40 MG/10 ML VIAL INJ IV SCH (10:37)
[2023-01-19] MEDS: SODIUM BICARBONATE 50ML VIAL 150 ML in D5W 5% 1,000 ML IV SCH ×2 (10:46→19:47)
[2023-01-19] MEDS: AZTREONAM 1GM INJ 1 GM in D5W 5% 50 ML IV SCH ×2 (12:35→21:45)
[2023-01-19] MEDS: NOREPINEPHRINE BITARTRATE 32 MG in SODIUM CHL 0.9% 218 ML IV SCH (15:11)
[2023-01-19] MEDS: EPINEPHrine HCL INJECTION 16 MG in D5W 5% 234 ML IV SCH (18:23)
[2023-01-19] MEDS: DEXTROSE 10% 1,000 ML IV SCH (19:00)
[2023-01-20] VITALS (102 sets, daily range): BP systolic 77–117; BP diastolic 46–72
[2023-01-20] MEDS: VASOPRESSIN 20 UNITS in SODIUM CHL 0.9% 99 ML IV SCH ×2 (01:42→05:38)
[2023-01-20] MEDS: DOPamine 1600MCG/ML D5W 250 ML IV SCH ×5 (01:50→20:47)
[2023-01-20 04:12] LABS: Hematocrit 29.1 % (36.0-46.0); Hemoglobin 9.2 g/dL (12.2-16.2); Mean Corpuscular Hemoglobin 31.1 pg (28.0-32.0); Mean Corpuscular Hgb Conc. 31.5 g/dL (32.0-36.0); Mean Corpuscular Volume 98.6 fL (80.0-100.0); Red Blood Cells 2.95 10^6/uL (4.0-5.20); Red Cell Distribution Width 19.4 % (11.8-14.3); White Blood Cell 28.4 10^3/uL (4.4-10.8)
[2023-01-20 04:23] LABS: Basophils % (manual) 0 (0.0-2.0); Blast Cells 0; Eosinophils % (manual) 0 (0-7); Metamyelocytes % 0; Promyelocytes % 0; Reactive Lymphocytes 0
[2023-01-20 04:30] LABS: BUN/Creatinine Ratio 11.1 (10.0-20.0); Calcium 6.2 mg/dL (8.5-10.1); Potassium 4.4 mmol/L (3.5-5.1)
[2023-01-20] MEDS: MIDAZOLAM DRIP 50 mg/50mL 50 ML IV SCH (04:43)
[2023-01-20] MEDS: fentaNYL Drip 2500mCg/250mlNS 250 ML IV SCH (04:43)
[2023-01-20 05:17] LABS: Band Neutrophils % (manual) 40; Lymphocytes % (manual) 6 (10.0-50.0); Monocytes % (manual) 2 (0-12); Myelocytes % 5
[2023-01-20] MEDS: NOREPINEPHRINE BITARTRATE 32 MG in SODIUM CHL 0.9% 218 ML IV SCH ×2 (05:37→17:54)
[2023-01-20] MEDS: ACCU-CHEK COMFORT CURVE STRIP VI SCH ×4 (05:38→23:50)
[2023-01-20] MEDS: InsuLIN REG 1unit/0.01ml Soln (100units/ml) SC SCH ×4 (05:46→23:50)
[2023-01-20] MEDS: SODIUM BICARBONATE 50ML VIAL 150 ML in D5W 5% 1,000 ML IV SCH (06:44)
[2023-01-20] MEDS ORDERED: PHENYLEPHRINE IV 250 ML IV ONE (06:47)
[2023-01-20] MEDS ORDERED: PHENYLEPHRINE HCL 10 MG/ML VL ONE (06:47)
[2023-01-20] MEDS: PHENYLEPHRINE INJ 80 MG in SODIUM CHL 0.9% 242 ML IV SCH ×3 (06:54→21:11)
[2023-01-20] MEDS: DOBUTamine 1000MCG/ML 250 ML IV SCH ×2 (07:30→19:49)
[2023-01-20] MEDS: ENOXAPARIN SOD 30 MG/0.3 ML SYRINGE SC SCH (10:00)
[2023-01-20] MEDS: FUROSEMIDE 40 MG/4 ML VIAL IV SCH ×2 (10:03→21:14)
[2023-01-20] MEDS: PANTOPRAZOLE 40 MG/10 ML VIAL INJ IV SCH (10:03)
[2023-01-20] MEDS: AZTREONAM 1GM INJ 1 GM in D5W 5% 50 ML IV SCH ×2 (10:04→21:14)
[2023-01-20] MEDS ORDERED: VANCOMYCIN 1GM/250ML 250 ML IV ONE (10:30)
[2023-01-20] MEDS: DEXTROSE 10% 1,000 ML IV SCH (10:49)
[2023-01-20] MEDS: MAGNESIUM SULFATE 1GM/100ML 100 ML IV SCH ×3 (13:48→15:51)
[2023-01-20] MEDS: IPRATROPIUM BROM 0.5 MG/2.5ML INH SOL NEB PRN ×2 (18:47→22:19)
[2023-01-20] MEDS: ALBUTEROL SULF 2.5 MG/0.5ML(0.5%) NEB SOLN NEB PRN ×2 (18:47→22:19)
[2023-01-21] VITALS (78 sets, daily range): BP systolic 80–112; BP diastolic 43–65
[2023-01-21] MEDS: VASOPRESSIN 20 UNITS in SODIUM CHL 0.9% 99 ML IV SCH ×2 (00:44→12:05)
[2023-01-21] MEDS: DOPamine 1600MCG/ML D5W 250 ML IV SCH ×4 (01:29→15:54)
[2023-01-21] MEDS: IPRATROPIUM BROM 0.5 MG/2.5ML INH SOL NEB PRN (02:20)
[2023-01-21] MEDS: ALBUTEROL SULF 2.5 MG/0.5ML(0.5%) NEB SOLN NEB PRN (02:20)
[2023-01-21 03:41] LABS: Hemoglobin 9.2 g/dL (12.2-16.2)
[2023-01-21 03:43] LABS: Hematocrit 27.9 % (36.0-46.0); Mean Corpuscular Volume 93.9 fL (80.0-100.0); Red Blood Cells 2.97 10^6/uL (4.0-5.20); Red Cell Distribution Width 18.4 % (11.8-14.3)
[2023-01-21 04:04] LABS: Albumin 1.8 g/dL (3.4-5.0); BUN/Creatinine Ratio 11.8 (10.0-20.0); Potassium 4.6 mmol/L (3.5-5.1)
[2023-01-21 04:05] LABS: Basophils % (manual) 0 (0.0-2.0); Blast Cells 0; Eosinophils % (manual) 0 (0-7); Metamyelocytes % 0; Myelocytes % 0; Promyelocytes % 0; Reactive Lymphocytes 0
[2023-01-21] MEDS: PHENYLEPHRINE INJ 80 MG in SODIUM CHL 0.9% 242 ML IV SCH ×2 (04:16→10:50)
[2023-01-21 04:22] LABS: Calcium 5.8 mg/dL (8.5-10.1)
[2023-01-21] MEDS: MIDAZOLAM DRIP 50 mg/50mL 50 ML IV SCH (04:45)
[2023-01-21 04:59] LABS: Band Neutrophils % (manual) 27; Lymphocytes % (manual) 2 (10.0-50.0); Monocytes % (manual) 8 (0-12)
[2023-01-21] MEDS: ACCU-CHEK COMFORT CURVE STRIP VI SCH ×2 (05:35→12:32)
[2023-01-21] MEDS: fentaNYL Drip 2500mCg/250mlNS 250 ML IV SCH (05:36)
[2023-01-21] MEDS: InsuLIN REG 1unit/0.01ml Soln (100units/ml) SC SCH ×2 (05:36→12:34)
[2023-01-21] MEDS: DEXTROSE 10% 1,000 ML IV SCH ×2 (06:14→10:12)
[2023-01-21] MEDS: EPINEPHrine HCL INJECTION 16 MG in D5W 5% 234 ML IV SCH (07:30)
[2023-01-21] MEDS: DOBUTamine 1000MCG/ML 250 ML IV SCH (09:10)
[2023-01-21] MEDS: FUROSEMIDE 40 MG/4 ML VIAL IV SCH (10:00)
[2023-01-21] MEDS ORDERED: VANCOMYCIN 1GM/250ML 250 ML IV ONE (10:00)
[2023-01-21] MEDS: ENOXAPARIN SOD 30 MG/0.3 ML SYRINGE SC SCH (10:00)
[2023-01-21] MEDS: PANTOPRAZOLE 40 MG/10 ML VIAL INJ IV SCH (10:04)
[2023-01-21] MEDS: AZTREONAM 1GM INJ 1 GM in D5W 5% 50 ML IV SCH (10:05)
[2023-01-21] MEDS: NOREPINEPHRINE BITARTRATE 32 MG in SODIUM CHL 0.9% 218 ML IV SCH (13:09)
[2023-01-21] MEDS ORDERED: CALCIUM GLUC 1,000mg/50ml-NS 50 ML IV ONE (13:45)
[2023-01-21] MEDS ORDERED: FUROSEMIDE INJECTION 100 MG in SODIUM CHL 0.9% 100 ML IV SCH (16:15)
[2023-01-21] MEDS ORDERED: MORPHINE SULFATE INJ 2 MG/ml SYRG IV PRN ×3 (17:00→17:45)
[2023-01-21] MEDS ORDERED: LORazepam 2MG/ML-1ML VIAL IV PRN ×3 (17:00→17:45)
== END 2023-01-21 22:30 | DRG 207 ==
LOC: EDUNIT# 00:41 → ER 00:41 → EDBD 00:41 → TELE 07:19 → ICU WEST 08:47
PROVIDERS: ADMIT Nurse Practitioner Family; ATTEND Internal Medicine
PROC: 02HV33Z Insertion of Infusion Device into Superior Vena Cava, Percutaneous Approach (ICD-10-PCS; principal; 2023-01-17)
PROC: 5A1955Z Respiratory Ventilation, Greater than 96 Consecutive Hours (ICD-10-PCS; 2023-01-17)
PROC: 0BH17EZ Insertion of Endotracheal Airway into Trachea, Via Natural or Artificial Opening (ICD-10-PCS; 2023-01-17)
PROC: B548ZZA Ultrasonography of Superior Vena Cava, Guidance (ICD-10-PCS; 2023-01-17)
PROC: 03HY32Z Insertion of Monitoring Device into Upper Artery, Percutaneous Approach (ICD-10-PCS; 2023-01-17)
DX: J96.01 Acute respiratory failure with hypoxia (principal); G93.41 Metabolic encephalopathy; J18.9 Pneumonia, unspecified organism; I50.23 Acute on chronic systolic (congestive) heart failure; K72.00 Acute and subacute hepatic failure without coma; E87.20 Acidosis, unspecified; I13.0 Hypertensive heart and chronic kidney disease with heart failure and stage 1 through stage 4 chronic kidney disease, or unspecified chronic kidney disease; I42.9 Cardiomyopathy, unspecified; N17.9 Acute kidney failure, unspecified; E87.1 Hypo-osmolality and hyponatremia; E87.4 Mixed disorder of acid-base balance; G93.1 Anoxic brain damage, not elsewhere classified; Z99.11 Dependence on respirator [ventilator] status; J91.8 Pleural effusion in other conditions classified elsewhere; I46.9 Cardiac arrest, cause unspecified; Z20.822 Contact with and (suspected) exposure to COVID-19; D64.9 Anemia, unspecified; E11.22 Type 2 diabetes mellitus with diabetic chronic kidney disease; I34.0 Nonrheumatic mitral (valve) insufficiency; N18.30 Chronic kidney disease, stage 3 unspecified; D69.6 Thrombocytopenia, unspecified; E83.51 Hypocalcemia; E11.51 Type 2 diabetes mellitus with diabetic peripheral angiopathy without gangrene; E78.00 Pure hypercholesterolemia, unspecified; I48.91 Unspecified atrial fibrillation; Z80.7 Family history of other malignant neoplasms of lymphoid, hematopoietic and related tissues; Z88.0 Allergy status to penicillin; Z83.3 Family history of diabetes mellitus; Z95.0 Presence of cardiac pacemaker; Z87.11 Personal history of peptic ulcer disease; Y95 Nosocomial condition; R57.0 Cardiogenic shock
CPT/HCPCS: 31720; 36415; 36556; 36600; 70450; 71045; 76604; 80048; 80053; 80202; 81001; 82805; 82962; 83615; 83735; 83880; 84484; 85007; 85025; 85027; 85379; 85610; 85730; 87040; 87070; 87081; 87086; 87205; 87426; 93005; 93970; 94002; 94003; 94640; 95819; 96374; 99291; C9113; G0378; J0171; J2250; J7060